=== PATIENT | male | born 1940 | race Caucasian/White ===

== ENCOUNTER 2020-02-19 10:37 | Inpatient (IN) | payer OTHER ==
[~2020-02-19 10:37] MED LIST: ALDACTONE25 MG PO; AMIODARONE HCL200 MG PO; DIGITEK125 MCG PO; ENTRESTO 97 MG1 EACH PO; EZETIMIBE10 MG PO; LEVAQUIN500 MG PO; LOVAZA1 GM PO; LOW DOSE ASPIRI81 MG PO; MULTIVITAMIN1 EACH PO; NORCO 5-325 TA1 EACH PO; PRAVASTATIN PO; SINGULAIR10 MG PO; SYNTHROID100 MCG PO; WARFARIN PO; XANAX0.5 MG PO
[2020-02-19 11:24] LABS: HGB 11.1 g/dl (13.2-18.0); MCH 29.8 pg (25.0-31.0); MCHC 30.8 g/dL (32.0-36.0); MCV 96.5 fL (78.0-100.0); MONOCYTE 8.1 % (0-12); MPV 10.4 fL (6.0-9.5); NEUTROPHIL 64.7 % (41-80); NRBC 0; PLT 188 K/uL (150-400); RBC 3.73 M/uL (4.70-6.00); RDW 15.4 % (11.5-14.0); WBC 8.3 K/uL (4.0-10.5)
[2020-02-19 11:40] LABS: ALBUMIN 3.2 g/dL (3.4-5.0); BILIRUBIN - TOTAL 0.4 mg/dL (0.2-1.0); BUN/CREAT RATIO (CALC) 14.7 RATIO; CREATININE 1.09 mg/dL (0.67-1.17); GLOBULIN (CALCULATION) 4.4 g/dL; MAGNESIUM 2.2 mg/dL (1.8-2.4); POTASSIUM 3.4 mmol/L (3.5-5.1); TOTAL PROTEIN 7.6 g/dL (6.4-8.2)
[2020-02-19 11:41] LABS: PROTHROMBIN TIME 29.7 SECONDS (11.4-13.6)
[2020-02-19 11:42] LABS: PTT 52.8 SECONDS (22.2-34.7)
[2020-02-19 12:05] LABS: LACTIC ACID 2.4 mmol/L (0.4-1.9)
[2020-02-19 13:14] LABS: BILIRUBIN NEGATIVE (NEGATIVE); BLOOD NEGATIVE Ery/uL (NEGATIVE); CLARITY CLEAR (CLEAR); COLOR YELLOW (YELLOW); GLUCOSE (U) NORMAL (NORMAL); LEUKOCYTES NEGATIVE Leu/uL (NEGATIVE); NITRITE NEGATIVE (NEGATIVE); PROTEIN NEGATIVE (NEGATIVE); UROBILINOGEN 0.2 mg/dL (0.2-1.0)
[2020-02-19 13:55] LABS: CORONAVIRUS 2019 SARS-COV-2 NEGATIVE (NEGATIVE)
[2020-02-19 14:32] LABS: INFLUENZA A NAA NEGATIVE (NEGATIVE)
[2020-02-19] MEDS ORDERED: VASOTEC5 MG PO (16:47)
[2020-02-19] MEDS ORDERED: CLARITIN10 MG PO (16:48)
[2020-02-19] MEDS ORDERED: PROMETHAZINE 2525 MG PO (16:50)
[2020-02-20 06:30] LABS: BASOPHIL 0.9 % (0-2); EOSINOPHIL 18.9 % (0-7); HCT 31.1 % (42.0-52.0); HGB 9.7 g/dl (13.2-18.0); LYMPHOCYTE 20.4 % (15-48); MCH 30.2 pg (25.0-31.0); MCHC 31.2 g/dL (32.0-36.0); MCV 96.9 fL (78.0-100.0); MONOCYTE 8.9 % (0-12); MPV 11.2 fL (6.0-9.5); NEUTROPHIL 50.7 % (41-80); NRBC 0; PLT 176 K/uL (150-400); RBC 3.21 M/uL (4.70-6.00); RDW 15.5 % (11.5-14.0); WBC 8.6 K/uL (4.0-10.5)
[2020-02-20 06:58] LABS: BUN/CREAT RATIO (CALC) 12.2 RATIO; CREATININE 1.15 mg/dL (0.67-1.17); POTASSIUM 3.3 mmol/L (3.5-5.1)
[2020-02-21 06:41] LABS: INR 3.9 (0.9-1.2); PROTHROMBIN TIME 36.5 SECONDS (11.4-13.6)
[2020-02-22 06:24] LABS: BASOPHIL 0.8 % (0-2); EOSINOPHIL 11.3 % (0-7); HCT 33.5 % (42.0-52.0); HGB 10.4 g/dl (13.2-18.0); LYMPHOCYTE 13.8 % (15-48); MCH 29.9 pg (25.0-31.0); MCV 96.3 fL (78.0-100.0); MPV 10.8 fL (6.0-9.5); NEUTROPHIL 65.7 % (41-80); NRBC 0; PLT 191 K/uL (150-400); RBC 3.48 M/uL (4.70-6.00); RDW 15.7 % (11.5-14.0); WBC 11.8 K/uL (4.0-10.5)
[2020-02-22 06:46] LABS: INR 3.34 (0.9-1.2); PROTHROMBIN TIME 32.3 SECONDS (11.4-13.6)
[2020-02-22 06:51] LABS: BUN/CREAT RATIO (CALC) 9.3 RATIO; CREATININE 1.18 mg/dL (0.67-1.17); POTASSIUM 3.7 mmol/L (3.5-5.1)
[2020-02-23 04:21] LABS: BASOPHIL 0.6 % (0-2); EOSINOPHIL 14.2 % (0-7); HCT 30.9 % (42.0-52.0); HGB 9.7 g/dl (13.2-18.0); LYMPHOCYTE 14.8 % (15-48); MCH 30.1 pg (25.0-31.0); MCHC 31.4 g/dL (32.0-36.0); MONOCYTE 10.1 % (0-12); MPV 10.7 fL (6.0-9.5); NRBC 0; PLT 176 K/uL (150-400); RBC 3.22 M/uL (4.70-6.00); RDW 15.9 % (11.5-14.0); WBC 10.8 K/uL (4.0-10.5)
[2020-02-23 04:32] LABS: INR 3.35 (0.9-1.2); PROTHROMBIN TIME 32.4 SECONDS (11.4-13.6)
[2020-02-23 04:40] LABS: BUN/CREAT RATIO (CALC) 11.6 RATIO; CREATININE 1.21 mg/dL (0.67-1.17); POTASSIUM 3.5 mmol/L (3.5-5.1)
[2020-02-23] MEDS ORDERED: ATROVENT HFA12.9 GM INH (13:07)
[2020-02-23] MEDS ORDERED: BACTRIM DS TAB1 EACH PO (13:07)
== END 2020-02-23 14:30 | disposition home or self-care (01) | DRG 194 ==
LOC: FER 10:37 → FMS 13:56
PROVIDERS: Emergency Medicine; Nurse Practitioner; ADMIT Internal Medicine
DX: J18.9 Pneumonia, unspecified organism (principal); J44.0 Chronic obstructive pulmonary disease with (acute) lower respiratory infection; E87.6 Hypokalemia; Z20.822 Contact with and (suspected) exposure to COVID-19; I50.9 Heart failure, unspecified; I25.10 Atherosclerotic heart disease of native coronary artery without angina pectoris; I48.91 Unspecified atrial fibrillation; E78.5 Hyperlipidemia, unspecified; K21.9 Gastro-esophageal reflux disease without esophagitis; E03.9 Hypothyroidism, unspecified; M19.90 Unspecified osteoarthritis, unspecified site; F41.9 Anxiety disorder, unspecified; Z87.891 Personal history of nicotine dependence; I25.2 Old myocardial infarction; Z95.1 Presence of aortocoronary bypass graft; Z95.2 Presence of prosthetic heart valve; Z79.01 Long term (current) use of anticoagulants
CPT/HCPCS: 36415; 36600; 71045; 71275; 80048; 80053; 80202; 81003; 82803; 83605; 83735; 83874; 83880; 84145; 84484; 85025; 85610; 85730; 87040; 87070; 87077; 87088; 87186; 87205; 93005; 94010; 94640; J1940; J2543; J3370; J7040; J7050; Q0169; Q9967; U0002

== ENCOUNTER 2020-04-20 10:53 | Emergency (ER) | payer OTHER ==
[~2020-04-20 10:53] MED LIST changes: +ATROVENT HFA12.9 GM INH; +BACTRIM DS TAB1 EACH PO; +CLARITIN10 MG PO; +PROMETHAZINE 2525 MG PO; +VASOTEC5 MG PO
[2020-04-20 12:08] LABS: BASOPHIL 0.7 % (0-2); EOSINOPHIL 8.2 % (0-7); HCT 31.1 % (42.0-52.0); HGB 9.8 g/dl (13.2-18.0); LYMPHOCYTE 15.1 % (15-48); MCH 30.2 pg (25.0-31.0); MCHC 31.5 g/dL (32.0-36.0); MCV 95.7 fL (78.0-100.0); MONOCYTE 10.3 % (0-12); MPV 10.5 fL (6.0-9.5); NEUTROPHIL 65.3 % (41-80); NRBC 0; PLT 212 K/uL (150-400); RBC 3.25 M/uL (4.70-6.00); RDW 15.7 % (11.5-14.0); WBC 9.6 K/uL (4.0-10.5)
[2020-04-20 12:11] LABS: INR 2.45 (0.9-1.2); PROTHROMBIN TIME 25.3 SECONDS (11.4-13.6); PTT 49.2 SECONDS (22.2-34.7)
[2020-04-20 12:17] LABS: ALBUMIN 2.9 g/dL (3.4-5.0); BILIRUBIN - TOTAL 0.4 mg/dL (0.2-1.0); BUN/CREAT RATIO (CALC) 15.7 RATIO; CREATININE 1.02 mg/dL (0.67-1.17); GLOBULIN (CALCULATION) 4.7 g/dL; TOTAL PROTEIN 7.6 g/dL (6.4-8.2)
[2020-04-20 12:30] LABS: PRO-BNP 6140 pg/mL (<450)
[2020-04-20] MEDS ORDERED: PREDNISONE 20MG20 MG PO (13:40)
== END 2020-04-20 13:50 | disposition home or self-care (01) ==
LOC: FER 10:53
PROVIDERS: Emergency Medicine
DX: J18.9 Pneumonia, unspecified organism (principal); R91.8 Other nonspecific abnormal finding of lung field; I11.0 Hypertensive heart disease with heart failure; I50.9 Heart failure, unspecified; I48.91 Unspecified atrial fibrillation; J44.9 Chronic obstructive pulmonary disease, unspecified; Z86.14 Personal history of Methicillin resistant Staphylococcus aureus infection; Z87.01 Personal history of pneumonia (recurrent); Z87.891 Personal history of nicotine dependence; Z95.0 Presence of cardiac pacemaker; Z95.1 Presence of aortocoronary bypass graft
CPT/HCPCS: 36415; 71250; 80053; 83605; 83880; 84145; 84484; 85025; 85610; 85730; 87040; 93005